=== PATIENT | male | born 2000 | race Caucasian/White ===

== ENCOUNTER 2025-07-08 11:55 | Emergency (ER) | payer BC, SELFPAY ==
[2025-07-08 11:58] VITALS: BP 159/99
[2025-07-08] MEDS: TYLENOL 975 MG PO (12:56)
--- NOTE | 2025-07-08 13:54 | ED.GENMED ---
History of Present Illness
General
Chief Complaint: Musculo-Skeletal Complaint
Source: patient and significant other
Exam Limitations: none
Time Seen by Provider: 07/08/25 12:39
History of Present Illness
History of Present Illness:
Patient is a 24-year-old male without significant past medical history who presents to the emergency department accompanied by his significant other for evaluation of a possible fractured nose. Patient reports that just prior to arrival they were
playing rugby when they got kneed in the nose. Patient immediately developed pain, swelling, and a deformity. And agency trainer who was present at the manage told him to come to the emergency department for evaluation and to possibly have the
nose reset. Patient denies any epistaxis. Patient denies any difficulty breathing through the nose. Patient denies any loss of consciousness, headache, dizziness, vision changes such as blurry vision or double vision, neck pain. Patient denies
they are anticoagulated.
Past History
Past History
ED Past Medical History: None
ED Past Surgical History: Other (Bilateral mastectomy)
Social History
Tobacco: Non-smoker
Alcohol: Occasional
Drug: None
Review of Systems
Review of Systems
Allergies reviewed?: Yes
All Other Systems: ROS reviewed and negative except as documented in HPI and ROS
Constitutional: Reports no symptoms
EENT: Reports other (nasal pain/swelling)
Respiratory: Reports no symptoms
Cardiac: Reports no symptoms
ABD/GI: Reports no symptoms
: Reports no symptoms
Musculoskeletal: Reports no symptoms
Skin: Reports no symptoms
Neurological: Reports no symptoms
Endocrine: Reports no symptoms
Hematologic/Lymphatic: Reports no symptoms
Psychiatric: Reports no symptoms
Phy Exam
General Physical Exam
General Presentation: well appearing and no apparent distress
General Skin: warm and dry
General Habitus: normal
General Mental: alert
General Hydration: appears well hydrated
ENT Exam
ENT Exam: EOMI, pharynx normal, neck supple and normocephalic
Additional ENT: deformity to the nose, skewed to the right, no septal hematoma
Eye Exam
Eye Exam: PERRL, cornea clear and conjunctiva normal
Pulmonary Exam
Pulmonary Exam: no respiratory distress
Neurological Exam
Neurological Exam: alert, oriented x3, no motor deficits and speech normal
Musculoskeletal Exam
Musculoskeletal Exam: full ROM and no edema
Skin Exam
Skin Exam: normal color, warm/dry, no rash and no petechia
Psychiatric Exam
Psychiatric Exam: normal mood/affect
Course
Orders/Labs/Results
Orders:
Orders
07/08/25 12:52
Acetaminophen [Tylenol] 975 mg PO NOW STA
07/08/25 12:53
Acetaminophen [Tylenol] 1,000 mg .ROUTE .STK-MED ONE
07/08/25 12:55
Acetaminophen [Tylenol] 975 mg .ROUTE .STK-MED ONE
Vital Signs
Initial and Last Documented VS:
Initial Vital Signs
Temp Pulse Resp BP Pulse Ox
98.2 F 98 22 159/99 96
07/08/25 11:58 07/08/25 11:58 07/08/25 11:58 07/08/25 11:58 07/08/25 11:58
Last Documented Vital Signs
Temp Pulse Resp BP Pulse Ox
98.2 F 78 18 130/71 98
07/08/25 11:58 07/08/25 14:14 07/08/25 14:14 07/08/25 14:14 07/08/25 14:14
*Pulse Oximetry
SaO2: 96
Oxygen Mode of Delivery: Room air
Patient hypoxic: no
*Critical Care Note
Total Time (30-74mins, 75-104mins- exclusive of procedures): Not Applicable
Update Note
Update Note:
24-year-old male presents to the emergency department for evaluation of an injury to his nose sustained during a rugby match just prior to arrival. On arrival, patient is mildly hypertensive, afebrile. On examination, the patient is
well-appearing, he is in no acute distress, he does have a deformity to the nose but no septal hematoma, no other facial deformity, tenderness, crepitus, step-offs. I spoke with ED attending who recommended discussing with ENT. I spoke with ENT
who states that they can see the patient on Thursday to perform closed reduction. Patient was given Tylenol. He was advised of ENT's recommendations. He agrees. He is safe for discharge to home with instructions on supportive care measures
including using ice and NSAIDs to help reduce inflammation and swelling along with return precautions. Patient and his significant other expressed understanding of the plan and agreed.
ED Attending Note
-
Portions of this chart may have been created with voice recognition software.� Occasional wrong word or��sound alike� substitutions may have occurred due to the inherent limitations of voice recognition software.
Discharge Plan
Departure
Patient Disposition: Home (Routine Discharge)
Date of Disposition: 07/08/25
Time of Disposition: 13:38
Patient with high blood pressure during this ER visit?: Yes
Condition: Good
Covid-19: Not Applicable
Discharge Problem:
Closed fracture nasal bone
Instructions: Nose Fracture ED
Referrals:
Kerri Chou NP [Family Provider, General]
Nestor Quintana MD [Active, Otology] - 07/10/25
Referral Note: Call for follow up appointment
Discharge Problem: Closed fracture nasal bone
Activity Restrictions/Additional Instructions:
You were seen in the emergency department for evaluation of a nasal bone fracture. We discussed your case with our ear, nose, and throat doctor, Dr. Quintana and they are recommending that you follow-up with them in their office on Thursday for
definitive treatment. In the meantime, you may use ice to the area for 20 minutes at a time 4-5 times a day to help reduce swelling. You may take ibuprofen 600 mg every 6 hours for pain and inflammation as well. You may add Tylenol 650 mg every
4-6 hours if needed for additional pain relief. Please return to emergency department if you develop severe pain, swelling, difficulty breathing, bleeding from your nose for greater than 30 minutes, or for any other worsening or concerning symptoms.
Interventions
Interventions:
*Risk Screen - Suicide Last Done: 07/08/25 11:58
*General Assessment Last Done: 07/08/25 11:58
*Neglect/Abuse Screening Last Done: 07/08/25 11:58
*ED- Fall Risk Assessment Last Done: 07/08/25 12:31
*ED COVID-19 Vaccine History Last Done: 07/08/25 12:31
*ED Influenza Vaccine History Last Done: 07/08/25 12:31
*Nursing Disposition Last Done: 07/08/25 14:14
ED-Musculoskeletal Assessment Last Done: 07/08/25 12:31
Discharge Date and Time
Discharge Date/Time: 07/08/25 14:15
Print Language: CYMRO
[2025-07-08 14:14] VITALS: BP 130/71
== END 2025-07-08 14:15 | disposition home or self-care (01) ==
LOC: EMR 11:55
PROVIDERS: EMERGENCY PHYSICIAN Student in an Organized Health Care Education/Training Program; FAMILY PHYSICIAN Nurse Practitioner Women's Health
DX: S02.2XXA Fracture of nasal bones, initial encounter for closed fracture (principal); W51.XXXA Accidental striking against or bumped into by another person, initial encounter; Y93.63 Activity, rugby
CPT/HCPCS: 99282